=== PATIENT | male | born 1980 | race Caucasian/White ===

== ENCOUNTER → 2016-06-15 | Outpatient (CLI) | payer OTHER ==
--- NOTE | ~2016-06-15 | CR142 ---
[facility] A Service of [facility] & [facility] RADIOLOGY TEXT RESULTS PATIENT: TEODORA HARRIS LOCATION: [facility] : 78 UNIT #: [id number] AGE: [address]: Chago Raymond MD SEX: M ORDER DR: [id number] [facility] [address] [place], [place] [address] [id number] O MR#: [id number] Acc #: [id number] NAME: TEODORA HARRIS : 1980 SEX: M STUDY DATE/TIME: 06/15/2016 17:59 UNIT: [facility] ROOM: STUDY DESCRIPTION: CR Hand Min 3 Views Rt Attending Physician: Chago Raymond M.D. Ordering Physician: Chago Raymond M.D. Primary Care Physician: Sommer Cifuentes A.P.R.N. MEDICAL IMAGING REPORT This report is preliminary unless electronic signature is present EXAM Right hand, 3 views. INDICATION Bilateral hand pain for 6-7 months. COMPARISON STUDIES No comparisons. FINDINGS There is no fracture or dislocation. Joint spaces are preserved. No erosive changes. Soft tissue structures are unremarkable. IMPRESSION Negative Dictated by... Bulmaro Dueñas M.D. THIS IS AN ELECTRONICALLY VERIFIED REPORT Bulmaro Dueñas M.D. at 06/17/2016 4:47 PM GWENDOLYN/yesi TD: 06/16/2016 14:17 JOB #: [id number] MEDICAL IMAGING REPORT Page 1 of 1 COPY
--- NOTE | ~2016-06-15 | CR141 ---
[facility] A Service of [facility] & [facility] RADIOLOGY TEXT RESULTS PATIENT: TEODORA HARRIS LOCATION: [facility] : 78 UNIT #: [id number] AGE: [address]: Chago Raymond MD SEX: M ORDER DR: [id number] [facility] [address] [place], [place] [address] [id number] O MR#: [id number] Acc #: [id number] NAME: TEODORA HARRIS : 1980 SEX: M STUDY DATE/TIME: 06/15/2016 18:00 UNIT: [facility] ROOM: STUDY DESCRIPTION: CR Hand Min 3 Views Lt Attending Physician: Chago Raymond M.D. Ordering Physician: Chago Raymond M.D. Primary Care Physician: Sommer Cifuentes A.P.R.N. MEDICAL IMAGING REPORT This report is preliminary unless electronic signature is present EXAM Left hand, 3 views. INDICATION Bilateral hand pain 6-7 months. COMPARISON STUDIES No comparisons. FINDINGS No fracture or dislocation. Joint space is preserved. No erosive changes. Soft tissue structures are unremarkable. IMPRESSION Negative Dictated by... Bulmaro Dueñas M.D. THIS IS AN ELECTRONICALLY VERIFIED REPORT Bulmaro Dueñas M.D. at 06/17/2016 4:48 PM GWENDOLYN/yesi TD: 06/16/2016 14:19 JOB #: [id number] MEDICAL IMAGING REPORT Page 1 of 1 COPY
== END | disposition home or self-care (01) ==
LOC: CRAD 17:37
DX: M79.642 Pain in left hand (principal); M79.641 Pain in right hand
CPT/HCPCS: 73130